=== PATIENT | female | born 1985 | race Two or more races ===

== ENCOUNTER 2021-07-17 20:45 | Observation (INO) | payer MEDICAID ==
[~2021-07-17] VITALS: Ht 157.5 cm; Wt 68.0 kg
[2021-07-17] MEDS ORDERED: PREN-176 PO (20:52)
[2021-07-17] MEDS ORDERED: LACTATED RINGERS 1,000 ML IV SCH (21:00)
[2021-07-17] MEDS ORDERED: BUTORPHANOL TARTRATE 2 MG/ML VIAL IV PRN (21:00)
[2021-07-17] MEDS ORDERED: NALOXONE HCL 0.4 MG/ML 1ML VIAL IM PRN (21:00)
[2021-07-17] MEDS ORDERED: DEXT 5%/LR + PITOCIN 20UNITS/L 1,000 ML IV SCH (21:00)
[2021-07-17] MEDS ORDERED: METHYLERGONOVINE MALEATE 0.2 MG/ML IM PRN (21:00)
[2021-07-17] MEDS ORDERED: LIDOCAINE HCL 1% 20ML VIAL (Pyxis) INJ INFIL SCH (21:00)
[2021-07-17] MEDS ORDERED: ROPIVACAINE HCL/PF EPIDURAL 200 ML EPI ONE (21:18)
[2021-07-17 21:56] LABS: CHLORIDE 107 mEq/L (98-107)
[2021-07-17 22:01] LABS: PARTIAL THROMBOPLASTIN TIME 27.9 sec (23.4-31.0); PROTHROMBIN TIME 10.3 sec (9.6-11.0)
== END 2021-07-17 21:44 | disposition home or self-care, planned readmission (81) ==
LOC: 8 EST LDRP 20:45
PROVIDERS: ADMIT Specialist; ATTEND Specialist
DX: O09.523 Supervision of elderly multigravida, third trimester (principal); Z79.899 Other long term (current) drug therapy; Z79.01 Long term (current) use of anticoagulants; Z3A.00 Weeks of gestation of pregnancy not specified
CPT/HCPCS: 36415; 59025; 80053; 85610; 85730; 96360; G0378; J2795; A4315; G0379